=== PATIENT | female | born 1955 | race Caucasian/White ===

== ENCOUNTER 2018-01-28 01:39 | Inpatient (IN) | payer OTHER ==
[~2018-01-28] VITALS: Ht 170.2 cm; Wt 129.2 kg
[2018-01-28] MEDS ORDERED: cefTRIAXone 1GM/10ml IVPUSH 10 ML IV ONE (03:30)
[2018-01-28] MEDS ORDERED: methylPREDNISolone SOD SUCC 125 MG/2 ML VL IV ONE (03:30)
[2018-01-28] MEDS ORDERED: IPRATROPIUM BROM 0.5 MG/2.5ML INH SOL NEB ONE (03:30)
[2018-01-28] MEDS ORDERED: ALBUTEROL SULF 2.5 MG/0.5ML(0.5%) NEB SOLN NEB ONE (03:30)
[2018-01-28] MEDS: MAGNESIUM SULFATE 1GM/100ML 100 ML IV SCH ×2 (03:30→06:58)
[2018-01-28 04:00] LABS: Basophils # (auto) 0 uL; Basophils % (auto) 0.7 % (0.0-2.0); Eosinophils # (auto) 0 uL; Eosinophils % (auto) 0.1 % (0.0-7.0); Hematocrit 28.6 % (36.0-46.0); Hemoglobin 9.7 g/dL (12.2-16.2); Lymphocytes # (auto) 1.1 uL; Lymphocytes % (auto) 28.3 % (10.0-50.0); Mean Corpuscular Hemoglobin 30.1 pg (28.0-32.0); Mean Corpuscular Hgb Conc. 33.7 g/dL (32.0-36.0); Mean Corpuscular Volume 89.3 fL (80.0-100.0); Monocytes # (auto) 0.4 uL; Monocytes % (auto) 10.1 % (0.0-12.0); Neutrophils # (auto) 2.4 uL; Neutrophils % (auto) 60.8 % (37.0-80.0); Nucleated Red Blood Cells % 0.5 %; Platelet Count (auto) 160 10^3/uL (140-450); Red Blood Cells 3.21 10^6/uL (4.0-5.20); Red Cell Distribution Width 19.3 % (11.8-14.3); White Blood Cell 3.9 10^3/uL (4.4-10.8)
[2018-01-28 04:14] LABS: Albumin 2.5 g/dL (3.4-5.0); Calcium 8.2 mg/dL (8.5-10.1); Potassium 3.3 mmol/L (3.5-5.1)
[2018-01-28 04:17] LABS: BUN/Creatinine Ratio 26.5; Bilirubin, Total 0.5 mg/dL (0.2-1.0); Total Protein 5.8 g/dL (6.4-8.2)
[2018-01-28] MEDS ORDERED: FUROSEMIDE 40 MG/4 ML VIAL IV ONE (05:15)
[2018-01-28 05:19] LABS: INR 0.98 (0.9-1.15); Prothrombin Time 10.7 sec (9.37-12.3)
[2018-01-28] MEDS ORDERED: MORPHINE SULFATE 8mg/ml INJ SDV IV PRN ×2 (06:45)
[2018-01-28] MEDS ORDERED: NITROGLYCERIN 0.4 MG SL TAB SL PRN (06:45)
[2018-01-28] MEDS ORDERED: ONDANSETRON HCL 4 MG/2 ML VIAL IV PRN (06:45)
[2018-01-28] MEDS ORDERED: ACETAMINOPHEN 325 MG TAB PO PRN (06:45)
[2018-01-28] MEDS ORDERED: POTASSIUM CHL 20 Meq TABLET PO ONE ×2 (06:45→15:00)
[2018-01-28] MEDS ORDERED: SOD CHL 0.45% 1,000 ML IV SCH (06:45)
[2018-01-28] MEDS ORDERED: ENOXAPARIN SOD 100 MG/1 ML SYRINGE SC SCH (10:00)
[2018-01-28] MEDS: HCTZ 25 MG TAB PO SCH (11:17)
[2018-01-28] MEDS: METOPROLOL TARTRATE 25 MG TAB PO SCH ×3 (11:18→22:10)
[2018-01-28] MEDS: FAMOTIDINE 20 MG TAB PO SCH ×2 (11:18→22:00)
[2018-01-28] MEDS: LISINOPRIL 10 MG TAB PO SCH (11:18)
[2018-01-28 11:53] LABS: Urine Bacteria FEW /hpf (None Seen); Urine Blood Negative /uL (Negative); Urine Specific Gravity 1.006 (1.001-1.035); Urine WBC 19 /hpf (0 - 5)
[2018-01-28] MEDS ORDERED: IOHEXOL 350 MG/ML 100ML IJ ONE ×2 (13:52→14:42)
[2018-01-28] MEDS ORDERED: POTASSIUM CHL 10% (20 MEQ/15ML) 15ml ORAL SOLN PO ONE (15:45)
[2018-01-28 17:00] VITALS: BP 159/89
[2018-01-28] MEDS ORDERED: WARFARIN SODIUM 5 MG TAB PO SCH (17:00)
[2018-01-28] MEDS: ENOXAPARIN SOD 120 MG/0.8 ML SYRINGE SC SCH (21:58)
[2018-01-28 22:00] VITALS: BP 130/67
[2018-01-28] MEDS: TEMAZEPAM 15 MG CAP PO PRN (22:07)
[2018-01-29 05:00] VITALS: BP 131/67
[2018-01-29 07:27] LABS: INR 1.05 (0.9-1.15); Partial Thromboplastin Time 33.1 sec (22.64-33.71); Prothrombin Time 11.5 sec (9.37-12.3)
[2018-01-29 07:28] LABS: Basophils # (auto) 0 uL; Basophils % (auto) 0.4 % (0.0-2.0); Eosinophils # (auto) 0 uL; Hematocrit 28.5 % (36.0-46.0); Hemoglobin 9.5 g/dL (12.2-16.2); Lymphocytes # (auto) 1.1 uL; Lymphocytes % (auto) 20.5 % (10.0-50.0); Mean Corpuscular Hemoglobin 30.1 pg (28.0-32.0); Mean Corpuscular Hgb Conc. 33.1 g/dL (32.0-36.0); Mean Corpuscular Volume 90.8 fL (80.0-100.0); Monocytes # (auto) 0.6 uL; Monocytes % (auto) 10.6 % (0.0-12.0); Neutrophils # (auto) 3.8 uL; Neutrophils % (auto) 68.5 % (37.0-80.0); Nucleated Red Blood Cells % 0.6 %; Platelet Count (auto) 183 10^3/uL (140-450); Red Blood Cells 3.14 10^6/uL (4.0-5.20); Red Cell Distribution Width 19.9 % (11.8-14.3); White Blood Cell 5.6 10^3/uL (4.4-10.8)
[2018-01-29 07:36] LABS: Albumin 2.6 g/dL (3.4-5.0); BUN/Creatinine Ratio 19.2; Bilirubin, Total 0.5 mg/dL (0.2-1.0); Calcium 8.8 mg/dL (8.5-10.1); Potassium 3.6 mmol/L (3.5-5.1); Total Protein 5.7 g/dL (6.4-8.2)
[2018-01-29 08:00] VITALS: BP_SYST 117; BP_SYST 147; BP_DIAS 67; BP_DIAS 77
[2018-01-29] MEDS: HCTZ 25 MG TAB PO SCH (10:00)
[2018-01-29] MEDS: LISINOPRIL 10 MG TAB PO SCH (10:00)
[2018-01-29] MEDS: METOPROLOL TARTRATE 25 MG TAB PO SCH ×2 (10:00→23:10)
[2018-01-29] MEDS: FAMOTIDINE 20 MG TAB PO SCH ×2 (10:35→23:11)
[2018-01-29] MEDS: ENOXAPARIN SOD 120 MG/0.8 ML SYRINGE SC SCH ×2 (10:35→23:11)
[2018-01-29 13:40] VITALS: BP 141/63
[2018-01-29] MEDS ORDERED: MORPHINE SULFATE 4 MG/ML SYR/VIAL ONE (15:27)
[2018-01-29 17:33] VITALS: BP 114/62
[2018-01-29 23:46] VITALS: BP 121/67
[2018-01-30 05:52] VITALS: BP 106/50
[2018-01-30 08:28] VITALS: BP 114/73
[2018-01-30] MEDS: LISINOPRIL 10 MG TAB PO SCH (10:00)
[2018-01-30] MEDS: HCTZ 25 MG TAB PO SCH (10:00)
[2018-01-30] MEDS: METOPROLOL TARTRATE 25 MG TAB PO SCH ×2 (10:00→21:59)
[2018-01-30] MEDS: FAMOTIDINE 20 MG TAB PO SCH ×2 (10:38→21:59)
[2018-01-30] MEDS: ENOXAPARIN SOD 120 MG/0.8 ML SYRINGE SC SCH ×3 (10:38→22:00)
[2018-01-30] MEDS ORDERED: ENOX100I5 SC (12:49)
[2018-01-30] MEDS ORDERED: LORA1TAB12 PO (12:49)
[2018-01-30] MEDS ORDERED: METH750T3 PO (12:49)
[2018-01-30] MEDS ORDERED: PRO10T PO (12:49)
[2018-01-30] MEDS ORDERED: POLY33504 PO (12:49)
[2018-01-30] MEDS ORDERED: OMEP20TA PO (12:49)
[2018-01-30] MEDS ORDERED: PIOG15TA25 PO (12:49)
[2018-01-30] MEDS ORDERED: GABA300C10 PO (12:49)
[2018-01-30] MEDS ORDERED: DOCU100T15 PO (12:49)
[2018-01-30] MEDS ORDERED: HYDR2TAB58 PO (12:49)
[2018-01-30] MEDS ORDERED: MULTCAP45 PO (12:49)
[2018-01-30] MEDS ORDERED: ACET-1156 PO (12:49)
[2018-01-30] MEDS ORDERED: SENN1TAB14 PO (12:49)
[2018-01-30] MEDS ORDERED: ONDA8TAB6 PO (12:49)
[2018-01-30] MEDS ORDERED: URSO1TAB5 PO (12:49)
[2018-01-30] MEDS ORDERED: IBUP600T27 PO (12:49)
[2018-01-30] MEDS ORDERED: LISI10TA6 PO (12:49)
[2018-01-30] MEDS ORDERED: POTA20TA53 PO (12:49)
[2018-01-30] MEDS ORDERED: METO25TA5 PO (12:49)
[2018-01-30 12:53] VITALS: BP 123/75
[2018-01-30 16:36] VITALS: BP 117/68
[2018-01-30] MEDS: ARTIFICIAL TEARS 15ml EACHEYE PRN (17:52)
[2018-01-30] MEDS: TEMAZEPAM 15 MG CAP PO PRN (21:59)
[2018-01-30 23:19] VITALS: BP 120/55
[2018-01-31 06:00] VITALS: BP 103/59
[2018-01-31 07:04] LABS: BUN/Creatinine Ratio 19.2; Basophils # (auto) 0 uL; Calcium 8.8 mg/dL (8.5-10.1); Eosinophils # (auto) 0 uL; Eosinophils % (auto) 0.1 % (0.0-7.0); Hematocrit 29.4 % (36.0-46.0); Hemoglobin 9.8 g/dL (12.2-16.2); Lymphocytes # (auto) 0.7 uL; Lymphocytes % (auto) 23.1 % (10.0-50.0); Mean Corpuscular Hemoglobin 30.4 pg (28.0-32.0); Mean Corpuscular Hgb Conc. 33.2 g/dL (32.0-36.0); Mean Corpuscular Volume 91.4 fL (80.0-100.0); Monocytes # (auto) 0.4 uL; Monocytes % (auto) 13.2 % (0.0-12.0); Neutrophils # (auto) 1.9 uL; Neutrophils % (auto) 62.6 % (37.0-80.0); Nucleated Red Blood Cells % 0.3 %; Platelet Count (auto) 184 10^3/uL (140-450); Potassium 3.7 mmol/L (3.5-5.1); Red Blood Cells 3.21 10^6/uL (4.0-5.20); White Blood Cell 3.1 10^3/uL (4.4-10.8)
[2018-01-31 07:45] LABS: Red Cell Distribution Width 20.1 % (11.8-14.3)
[2018-01-31 09:00] VITALS: BP 124/76
[2018-01-31] MEDS: FAMOTIDINE 20 MG TAB PO SCH ×2 (10:00→21:25)
[2018-01-31] MEDS: METOPROLOL TARTRATE 25 MG TAB PO SCH ×3 (10:00→21:41)
[2018-01-31] MEDS: HCTZ 25 MG TAB PO SCH (10:00)
[2018-01-31] MEDS: LISINOPRIL 10 MG TAB PO SCH (10:00)
[2018-01-31] MEDS ORDERED: LIDOCAINE 2%HCL (LOCAL ANESTH.) INJ 20ML MDV ONE (12:57)
[2018-01-31] MEDS ORDERED: IODIXANOL 320MG/ML 100ML BTL IV ONE (12:57)
[2018-01-31 13:00] VITALS: BP 127/75
[2018-01-31] MEDS ORDERED: MIDAZOLAM HCL 1MG/1ML-2 ML VIAL ONE (14:01)
[2018-01-31] MEDS ORDERED: fentaNYL CITRATE 100 MCG/2 ML VL ONE (14:01)
[2018-01-31 17:00] VITALS: BP 124/68
[2018-01-31] MEDS: RIVAROXABAN 15 MG TAB PO SCH ×2 (18:38→21:25)
[2018-01-31] MEDS: ARTIFICIAL TEARS 15ml EACHEYE PRN (21:39)
[2018-01-31 22:00] VITALS: BP 125/64
[2018-02-01 05:30] VITALS: BP 121/58
[2018-02-01 07:01] LABS: Basophils # (auto) 0 uL; Basophils % (auto) 0.7 % (0.0-2.0); Eosinophils # (auto) 0 uL; Eosinophils % (auto) 0.1 % (0.0-7.0); Hematocrit 29.4 % (36.0-46.0); Hemoglobin 9.9 g/dL (12.2-16.2); Lymphocytes # (auto) 0.5 uL; Mean Corpuscular Hemoglobin 30.5 pg (28.0-32.0); Mean Corpuscular Hgb Conc. 33.8 g/dL (32.0-36.0); Mean Corpuscular Volume 90.3 fL (80.0-100.0); Monocytes # (auto) 0.4 uL; Monocytes % (auto) 13.2 % (0.0-12.0); Neutrophils # (auto) 2.2 uL; Platelet Count (auto) 180 10^3/uL (140-450); Red Blood Cells 3.26 10^6/uL (4.0-5.20)
[2018-02-01 07:12] LABS: Red Cell Distribution Width 20.2 % (11.8-14.3)
[2018-02-01 07:18] LABS: BUN/Creatinine Ratio 21.3; Calcium 8.7 mg/dL (8.5-10.1); Potassium 3.6 mmol/L (3.5-5.1)
[2018-02-01 08:00] VITALS: BP 123/80
[2018-02-01] MEDS: RIVAROXABAN 15 MG TAB PO SCH (09:14)
[2018-02-01] MEDS: FAMOTIDINE 20 MG TAB PO SCH (09:14)
[2018-02-01] MEDS: METOPROLOL TARTRATE 25 MG TAB PO SCH (09:17)
[2018-02-01] MEDS: HCTZ 25 MG TAB PO SCH (09:17)
[2018-02-01] MEDS: LISINOPRIL 10 MG TAB PO SCH (09:18)
[2018-02-01 12:00] VITALS: BP 129/71
[2018-02-01 14:39] VITALS: BP 129/71
== END 2018-02-01 16:05 | disposition home or self-care (01) | DRG 166 ==
LOC: EDBD 01:39 → ER 01:39 → TELE 01:40 → TELE-WESTW 13:16
PROVIDERS: ADMIT Nurse Practitioner; ATTEND Internal Medicine
PROC: 06H03DZ Insertion of Intraluminal Device into Inferior Vena Cava, Percutaneous Approach (ICD-10-PCS; principal; 2018-01-31)
PROC: B5191ZZ Fluoroscopy of Inferior Vena Cava using Low Osmolar Contrast (ICD-10-PCS; 2018-01-31)
DX: I26.99 Other pulmonary embolism without acute cor pulmonale (principal); I50.33 Acute on chronic diastolic (congestive) heart failure; E43 Unspecified severe protein-calorie malnutrition; E87.0 Hyperosmolality and hypernatremia; D68.69 Other thrombophilia; E66.01 Morbid (severe) obesity due to excess calories; E87.1 Hypo-osmolality and hyponatremia; Z68.41 Body mass index [BMI] 40.0-44.9, adult; D64.9 Anemia, unspecified; Z92.21 Personal history of antineoplastic chemotherapy; Z88.6 Allergy status to analgesic agent; Z88.8 Allergy status to other drugs, medicaments and biological substances; Z85.028 Personal history of other malignant neoplasm of stomach
CPT/HCPCS: 36415; 36600; 71045; 71275; 80048; 80053; 81001; 82805; 83880; 84484; 85025; 85379; 85610; 85730; 86850; 86900; 86901; 87081; 93005; 93306; 93970; 94640; 96365; 96366; 96372; 96375; 99152; J1642; J2250; J2270; J2405; Q9967